=== PATIENT | female | born 1945 | race Caucasian/White ===

== ENCOUNTER 2020-10-23 11:39 | Observation (INO) ==
[2020-10-23 16:11] LABS: Urine Appearance Cloudy; Urine Bilirubin Negative (Negative); Urine Blood Negative (Negative); Urine Color Yellow; Urine Glucose 3+(>=500 mg/dL) (Negative); Urine Ketones Negative (Negative); Urine Nitrite Negative (Negative); Urine Protein Negative (Negative); Urine Urobilinogen Negative (Negative)
[2020-10-23 16:59] LABS: ABS Lymphocytes 1.9 10^3/ul (1.0-4.8); ABS Monocytes 0.9 10^3/ul (0-0.8); ABS Neutrophils 11.6 10^3/ul (1.5-7.7); Eosinophil % 0.2 %; Hematocrit 35 % (35-47); Hemoglobin 11.5 g/dL (12.0-16.0); Lymphocyte % 13.3 %; Mean Corpuscular HGB Conc 33 g/dL (31-36); Mean Corpuscular Hemoglobin 30 pg (27-31); Mean Corpuscular Volume 89 fL (80-97); Mean Platelet Volume 9.3 fL (7.4-10.4); Platelet Count 278 10^3/uL (150-450); Red Blood Count 3.88 10^6 /uL (3.70-4.87); Red Cell Distribution Width 14 % (10-15); White Blood Count 14.5 10^3/uL (3.5-10.8)
[2020-10-23 17:18] LABS: Albumin 3.6 g/dL (3.2-5.2); Albumin/Globulin Ratio 1.2 (1-3); Calcium 8.9 mg/dL (8.6-10.3); EGFR Non-African American 15.7 (>60); Globulin 2.9 g/dL (2-4); Magnesium 1.6 mg/dL (1.9-2.7); Potassium 3.9 mmol/L (3.5-5.0); Total Bilirubin 0.4 mg/dL (0.2-1.0); Total Protein 6.5 g/dL (6.4-8.9)
[2020-10-23 17:19] LABS: Troponin I 0.01 ng/mL (<0.03)
[2020-10-23] MEDS ORDERED: NS 0.9% 1000 ml BAG 1,000 ML IV ONE (17:23)
[2020-10-23 18:32] LABS: Venous Bicarbonate HCO3 22.3 mmol/L (24-28)
[2020-10-23] MEDS: NS 0.9% 1000 ml BAG 2,000 ML IV ONE ×2 (20:30→21:30)
[2020-10-23] MEDS ORDERED: Insulin Infusion 100unit/100mL 100 UNIT/100 ML BAG IV SCH (21:00)
[2020-10-24 00:22] LABS: Calcium 7.6 mg/dL (8.6-10.3); EGFR Non-African American 19.9 (>60); Potassium 3.3 mmol/L (3.5-5.0)
[2020-10-24] MEDS ORDERED: Magnesium Sulfate IV 3 GM in NS 0.9% 100 ml BAG 100 ML IVPB ONE (00:33)
[2020-10-24] MEDS ORDERED: Insulin GLARGINE 100 un/ml 10 ml VIAL SUBCUT ONE (01:17)
[2020-10-24] MEDS ORDERED: Dextrose 50% Syringe 50 ml 25 GM/50 ML SYRINGE IV PUSH PRN (01:19)
[2020-10-24] MEDS ORDERED: Lactated Ringers 1000 ml BAG 1,000 ML IV SCH (02:00)
[2020-10-24] MEDS: KCL 20 MEQ/100 ML IVPREMIX 20 MEQ/100 ML BAG IV SCH ×4 (05:38→09:20)
[2020-10-24] MEDS: Heparin 5000 UNITS/ML 1 mL VIAL SUBCUT SCH ×2 (05:38→15:18)
[2020-10-24 05:46] LABS: ABS Lymphocytes 2.5 10^3/ul (1.0-4.8); ABS Neutrophils 11.4 10^3/ul (1.5-7.7); Eosinophil % 0.2 %; Hematocrit 31 % (35-47); Hemoglobin 10.3 g/dL (12.0-16.0); Mean Corpuscular HGB Conc 34 g/dL (31-36); Mean Corpuscular Hemoglobin 30 pg (27-31); Mean Corpuscular Volume 88 fL (80-97); Mean Platelet Volume 9.3 fL (7.4-10.4); Platelet Count 267 10^3/uL (150-450); Red Blood Count 3.47 10^6 /uL (3.70-4.87); Red Cell Distribution Width 14 % (10-15); White Blood Count 14.9 10^3/uL (3.5-10.8)
[2020-10-24 06:15] LABS: Calcium 7.7 mg/dL (8.6-10.3); Magnesium 2.6 mg/dL (1.9-2.7); Potassium 3.1 mmol/L (3.5-5.0)
[2020-10-24] MEDS ORDERED: Potassium Chloride LIQUID 20 MEQ/15 ML LIQUID PO ONE (06:16)
[2020-10-24 06:21] LABS: C Reactive Protein 11.96 mg/L (<8.01); EGFR African American 28.3 (>60); EGFR Non-African American 23.3 (>60); Phosphorus 3.2 mg/dL (2.5-5.0)
[2020-10-24] MEDS ORDERED: NS 0.9% 1000 ml BAG 1,000 ML IV SCH (06:30)
[2020-10-24] MEDS ORDERED: cefTRIAXone 1 gm/50 mL NS BAG 1 GM/50 ML BAG IVPB SCH (07:30)
[2020-10-24] MEDS ORDERED: CYANOCOBALAMIN 100 MCG PO SCH (09:00)
[2020-10-24] MEDS ORDERED: BRIMONIDINE P 0.15% BOTH EYES SCH (09:00)
[2020-10-24] MEDS ORDERED: Insulin GLARGINE 100 un/ml 10 ml VIAL SUBCUT SCH (09:00)
[2020-10-24] MEDS: Aspirin EC 81 mg TAB.EC (enteric coated) PO SCH (09:20)
[2020-10-24] MEDS: Timolol 0.5% OPTH.SOL BTL BOTH EYES SCH ×2 (09:41→23:28)
[2020-10-24] MEDS: BRIMONIDINE P 0.15% BOTH EYES SCH ×2 (11:46→23:29)
[2020-10-24 12:27] LABS: Calcium 7.8 mg/dL (8.6-10.3); EGFR African American 30.8 (>60); EGFR Non-African American 25.5 (>60); Magnesium 2.3 mg/dL (1.9-2.7); Potassium 4.3 mmol/L (3.5-5.0)
[2020-10-24 13:15] LABS: TSH Ultra Thyroid Stim Horm 0.34 mcIU/mL (0.34-5.60)
[2020-10-24] MEDS ORDERED: Enoxaparin 30 MG/0.3 ML SYR SUBCUT SCH (21:00)
[2020-10-24] MEDS ORDERED: Latanoprost 0.005% 2.5 ml BTL BOTH EYES SCH (21:00)
[2020-10-24] MEDS: Insulin GLARGINE 100 un/ml 10 ml VIAL SUBCUT SCH (23:26)
[2020-10-25 05:50] LABS: ABS Basophils 0.1 10^3/ul (0-0.2); ABS Eosinophils 0.1 10^3/ul (0-0.6); ABS Lymphocytes 2.7 10^3/ul (1.0-4.8); ABS Neutrophils 7.9 10^3/ul (1.5-7.7); Eosinophil % 1.2 %; Hematocrit 29 % (35-47); Hemoglobin 9.9 g/dL (12.0-16.0); Lymphocyte % 22.8 %; Mean Corpuscular HGB Conc 35 g/dL (31-36); Mean Corpuscular Hemoglobin 30 pg (27-31); Mean Corpuscular Volume 87 fL (80-97); Mean Platelet Volume 9.1 fL (7.4-10.4); Platelet Count 254 10^3/uL (150-450); Red Blood Count 3.27 10^6 /uL (3.70-4.87); Red Cell Distribution Width 14 % (10-15); White Blood Count 11.7 10^3/uL (3.5-10.8)
[2020-10-25 06:12] LABS: Calcium 7.5 mg/dL (8.6-10.3); EGFR African American 33.4 (>60); EGFR Non-African American 27.6 (>60); Potassium 3.4 mmol/L (3.5-5.0)
[2020-10-25] MEDS ORDERED: Potassium Chlor 10 meq TAB PO ONE (06:40)
[2020-10-25] MEDS: Aspirin EC 81 mg TAB.EC (enteric coated) PO SCH (08:32)
[2020-10-25] MEDS: Insulin GLARGINE 100 un/ml 10 ml VIAL SUBCUT SCH (08:43)
[2020-10-25] MEDS: Timolol 0.5% OPTH.SOL BTL BOTH EYES SCH (09:00)
[2020-10-25] MEDS: BRIMONIDINE P 0.15% BOTH EYES SCH (09:00)
[2020-10-25 15:44] VITALS: BP 110/60
== END 2020-10-25 17:30 | disposition home or self-care (01) ==
LOC: MEDTELE 11:39 → ED 11:39
PROVIDERS: ADMIT Internal Medicine; ATTEND Internal Medicine

== ENCOUNTER 2022-08-28 03:46 | Inpatient (IN) ==
[2022-08-28 04:13] LABS: INR 1.21 (0.88-1.18)
[2022-08-28 04:15] LABS: ABS Lymphocytes 1.4 10^3/uL (1.0-4.8); ABS Monocytes 0.2 10^3/uL (0.0-0.9); ABS Neutrophils 9.4 10^3/uL (1.5-7.6); ABS Nucleated RBC 0.01 10^3/ul; Eosinophil % 0.1 %; Hematocrit 35.3 % (35-45); Hemoglobin 11.7 g/dL (11.5-14.3); Lymphocyte % 12.5 %; Mean Corpuscular Hemoglobin 30.6 pg (27-33); Mean Corpuscular Hgb Conc 33.3 g/dL (31-36); Mean Corpuscular Volume 91.9 fL (80-97); Mean Platelet Volume 8.8 fL (7.5-11.2); Nucleated Red Blood Cells % 0.1 /100 WBC (0.0-0.4); Platelet Count 225 10^3/uL (150-450); Red Blood Count 3.84 10^6/uL (3.63-4.92); Red Cell Distribution Width 14.5 % (12-17); White Blood Count 11.1 10^3/uL (3.8-11.8)
[2022-08-28 04:22] LABS: Albumin 4.2 g/dL (3.2-5.2); Albumin/Globulin Ratio 1.4 (1-3); Calcium 9.2 mg/dL (8.6-10.3); Creatinine, Serum 1.42 mg/dL (0.51-0.95); Globulin 2.9 g/dL (2-4); Magnesium 1.4 mg/dL (1.9-2.7); Total Bilirubin 0.5 mg/dL (0.2-1.0); Total Protein 7.1 g/dL (6.4-8.9); eGFR CKD-EPI 37.6 (>60)
[2022-08-28] MEDS ORDERED: Furosemide 40 mg/4 ml IV VIAL IV ONE (04:31)
[2022-08-28] MEDS ORDERED: Furosemide 40 mg/4 ml IV VIAL ONE (04:34)
[2022-08-28] MEDS ORDERED: Heparin DRIP 25,000 UNITS BAG 25,000 UNITS/500 ML BAG IV SCH (04:45)
[2022-08-28 04:55] LABS: PCO2 Arterial 47 mmHg (35-45); PO2 Arterial 97 mmHg (80-100)
[2022-08-28] MEDS ORDERED: Heparin 5000 UNITS/ML 1 mL VIAL IV SCH (05:00)
[2022-08-28] MEDS ORDERED: nitroGLYCERIN DRIP 25,000 MCG/250 ML BTL IV SCH ×2 (05:00→16:00)
[2022-08-28 05:23] LABS: High Sensitivity Troponin 1 Hr 1105 pg/mL (<15)
[2022-08-28] MEDS ORDERED: Magnesium Sulf 4 GM/100 ML IV 4,000 MG/100 ML BAG IVPB ONE (05:27)
[2022-08-28] MEDS: Brimonidine P 0.15%(NF) OPH SOL 5 ML BTL BOTH EYES SCH ×2 (07:27→20:50)
[2022-08-28 07:48] LABS: High Sensitivity Troponin 3 Hr 3177 pg/mL (<15)
[2022-08-28 08:31] LABS: HDL Cholesterol 57.6 mg/dL; Phosphorus 4.1 mg/dL (2.5-5.0)
[2022-08-28] MEDS ORDERED: Flumazenil 0.5 mg/5 ml 0.1 MG/ML 5 ml VIAL IV PRN (09:01)
[2022-08-28] MEDS ORDERED: Midazolam 10 mg/10 ml VIAL 1 mg/ml 10 ml VIAL (10 mg) IV SLOW PU ONE (09:01)
[2022-08-28] MEDS ORDERED: fentaNYL 100 mcg/2 ml 50 MCG/ML VIAL IV SLOW PU ONE (09:01)
[2022-08-28] MEDS ORDERED: Naloxone 0.4 mg VIAL 0.4 mg/ml 1 ml VIAL IV PUSH PRN (09:01)
[2022-08-28] MEDS ORDERED: Dextrose 50% Syringe 50 ml 25 GM/50 ML SYRINGE IV PUSH PRN (09:07)
[2022-08-28] MEDS ORDERED: nitroGLYCERIN DRIP 25,000 MCG/250 ML BTL ONE (09:16)
[2022-08-28] MEDS ORDERED: Heparin 1,000 UNIT/ML 10 ml (10,000 UNITS) CATHLAB/DIALYSIS ONE (09:16)
[2022-08-28] MEDS ORDERED: Heparin 2 UNITS/ML 1000 mls 3,000 ML IV ONE (09:16)
[2022-08-28] MEDS ORDERED: niCARdipine 0.1MG/ML IVPREMIX 20 MG/200 ML BAG IV ONE (09:17)
[2022-08-28] MEDS ORDERED: Lidocaine 1% MPF 5 ML VIAL ONE (09:17)
[2022-08-28] MEDS ORDERED: Iohexol 350 (CONTRAST) 200 ML MDV IV ONE (09:17)
[2022-08-28] MEDS ORDERED: fentaNYL 100 mcg/2 ml 50 MCG/ML VIAL ONE (09:56)
[2022-08-28] MEDS ORDERED: Midazolam 5 mg/5 ml VIAL 1 mg/ml 5 ml VIAL (5 mg) ONE (09:56)
[2022-08-28 10:11] LABS: Urine Appearance Clear; Urine Bilirubin Negative (Negative); Urine Blood Negative (Negative); Urine Color Straw; Urine Glucose Negative (Negative); Urine Ketones Negative (Negative); Urine Nitrite Negative (Negative); Urine Protein Negative (Negative); Urine Specific Gravity 1.006 (1.002-1.030); Urine Urobilinogen Negative (Negative)
[2022-08-28] MEDS ORDERED: Atropine 0.1 MG/ML 10 ml SYR (1 mg) ONE (10:15)
[2022-08-28 10:48] LABS: TSH Ultra Thyroid Stim Horm 0.24 mcIU/mL (0.34-5.60)
[2022-08-28] MEDS: Ondansetron 4 mg VIAL 2 MG/ML 2 ml VIAL IV PRN (13:53)
[2022-08-28] MEDS ORDERED: Pantoprazole VIAL 40 MG VIAL IV ONE (13:56)
[2022-08-28] MEDS ORDERED: Pantoprazole VIAL 40 MG VIAL ONE (13:58)
[2022-08-28] MEDS ORDERED: Metoprolol Tartrate 5 mg VIAL 5 ml VIAL (1 mg/ml) IV PRN (15:25)
[2022-08-28] MEDS: Latanoprost 0.005% 2.5 ml BTL BOTH EYES SCH (21:01)
[2022-08-28] MEDS: Timolol 0.5% OPTH.SOL BTL BOTH EYES SCH (21:11)
[2022-08-29 05:22] LABS: ABS Basophils 0.1 10^3/uL (0.0-0.1); ABS Lymphocytes 1.4 10^3/uL (1.0-4.8); ABS Monocytes 1.4 10^3/uL (0.0-0.9); Eosinophil % 0.1 %; Hematocrit 31.1 % (35-45); Hemoglobin 10.7 g/dL (11.5-14.3); Mean Corpuscular Hemoglobin 30.8 pg (27-33); Mean Corpuscular Hgb Conc 34.4 g/dL (31-36); Mean Corpuscular Volume 89.7 fL (80-97); Mean Platelet Volume 8.4 fL (7.5-11.2); Platelet Count 221 10^3/uL (150-450); Red Blood Count 3.47 10^6/uL (3.63-4.92); Red Cell Distribution Width 14.5 % (12-17); White Blood Count 16.9 10^3/uL (3.8-11.8)
[2022-08-29 05:40] LABS: Albumin 3.7 g/dL (3.2-5.2); Albumin/Globulin Ratio 1.5 (1-3); Calcium 8.8 mg/dL (8.6-10.3); Creatinine, Serum 1.46 mg/dL (0.51-0.95); Globulin 2.4 g/dL (2-4); Potassium 3.6 mmol/L (3.5-5.0); Total Bilirubin 0.7 mg/dL (0.2-1.0); Total Protein 6.1 g/dL (6.4-8.9); eGFR CKD-EPI 36.4 (>60)
[2022-08-29] MEDS ORDERED: Potassium Chlor 20 meq TAB.ER PO ONE (07:54)
[2022-08-29 08:20] LABS: Magnesium 1.9 mg/dL (1.9-2.7)
[2022-08-29] MEDS: Brimonidine P 0.15%(NF) OPH SOL 5 ML BTL BOTH EYES SCH ×2 (08:49→19:42)
[2022-08-29] MEDS ORDERED: Magnesium Sulfate 2 gm BAG 2 GM/50 ML BAG IVPB ONE (08:51)
[2022-08-29] MEDS: Timolol 0.5% OPTH.SOL BTL BOTH EYES SCH ×2 (08:51→19:42)
[2022-08-29] MEDS ORDERED: Amiodarone 150 mg IVPREMIX 150 MG/100 ML BAG IV ONE (10:38)
[2022-08-29] MEDS: Amiodarone 360 MG IVPREMIX 360 MG/200 ML BAG IV SCH ×3 (11:29→18:15)
[2022-08-29 14:20] LABS: Free T4 1.11 ng/dL (0.61-1.12)
[2022-08-29] MEDS ORDERED: Amiodarone 360 MG IVPREMIX 360 MG/200 ML BAG IV SCH (17:25)
[2022-08-29] MEDS: Latanoprost 0.005% 2.5 ml BTL BOTH EYES SCH (19:43)
[2022-08-29] MEDS: Insulin GLARGINE 100 un/ml 10 ml VIAL SUBCUT SCH (20:23)
[2022-08-30] MEDS: Ondansetron 4 mg VIAL 2 MG/ML 2 ml VIAL IV PRN (01:47)
[2022-08-30] MEDS: Amiodarone 360 MG IVPREMIX 360 MG/200 ML BAG IV SCH (03:40)
[2022-08-30 04:28] LABS: ABS Lymphocytes 0.9 10^3/uL (1.0-4.8); ABS Monocytes 0.9 10^3/uL (0.0-0.9); ABS Neutrophils 12.2 10^3/uL (1.5-7.6); Eosinophil % 0.1 %; Hematocrit 28.7 % (35-45); Hemoglobin 9.9 g/dL (11.5-14.3); Lymphocyte % 6.2 %; Mean Corpuscular Hemoglobin 30.9 pg (27-33); Mean Corpuscular Hgb Conc 34.4 g/dL (31-36); Mean Corpuscular Volume 89.8 fL (80-97); Mean Platelet Volume 8.8 fL (7.5-11.2); Platelet Count 182 10^3/uL (150-450); Red Cell Distribution Width 14.7 % (12-17)
[2022-08-30 04:45] LABS: Calcium 8.3 mg/dL (8.6-10.3); Creatinine, Serum 2.14 mg/dL (0.51-0.95); Magnesium 2.5 mg/dL (1.9-2.7); Phosphorus 3.6 mg/dL (2.5-5.0); Potassium 4.1 mmol/L (3.5-5.0)
[2022-08-30] MEDS: Timolol 0.5% OPTH.SOL BTL BOTH EYES SCH ×2 (08:21→20:04)
[2022-08-30] MEDS: Brimonidine P 0.15%(NF) OPH SOL 5 ML BTL BOTH EYES SCH ×2 (08:21→20:03)
[2022-08-30] MEDS: Insulin GLARGINE 100 un/ml 10 ml VIAL SUBCUT SCH ×2 (09:08→20:10)
[2022-08-30] MEDS ORDERED: Lactated Ringers 1000 ml BAG 250 ML IV ONE (09:48)
[2022-08-30] MEDS: Latanoprost 0.005% 2.5 ml BTL BOTH EYES SCH (20:03)
[2022-08-31 04:17] LABS: ABS Basophils 0.1 10^3/uL (0.0-0.1); ABS Eosinophils 0.1 10^3/uL (0.0-0.5); ABS Lymphocytes 1.6 10^3/uL (1.0-4.8); ABS Monocytes 1.4 10^3/uL (0.0-0.9); ABS Neutrophils 9.2 10^3/uL (1.5-7.6); ABS Nucleated RBC 0.02 10^3/ul; Eosinophil % 0.7 %; Hematocrit 25.7 % (35-45); Hemoglobin 8.9 g/dL (11.5-14.3); Lymphocyte % 12.7 %; Mean Corpuscular Hemoglobin 31.2 pg (27-33); Mean Corpuscular Hgb Conc 34.8 g/dL (31-36); Mean Corpuscular Volume 89.7 fL (80-97); Mean Platelet Volume 8.7 fL (7.5-11.2); Nucleated Red Blood Cells % 0.1 /100 WBC (0.0-0.4); Platelet Count 171 10^3/uL (150-450); Red Blood Count 2.86 10^6/uL (3.63-4.92); White Blood Count 12.3 10^3/uL (3.8-11.8)
[2022-08-31 04:32] LABS: Calcium 7.8 mg/dL (8.6-10.3); Creatinine, Serum 3.17 mg/dL (0.51-0.95); Magnesium 2.3 mg/dL (1.9-2.7); Phosphorus 5.1 mg/dL (2.5-5.0); Potassium 3.9 mmol/L (3.5-5.0); eGFR CKD-EPI 14.4 (>60)
[2022-08-31] MEDS: Timolol 0.5% OPTH.SOL BTL BOTH EYES SCH ×2 (08:25→20:33)
[2022-08-31] MEDS: Brimonidine P 0.15%(NF) OPH SOL 5 ML BTL BOTH EYES SCH ×2 (08:25→20:32)
[2022-08-31] MEDS: Insulin GLARGINE 100 un/ml 10 ml VIAL SUBCUT SCH ×2 (08:29→20:31)
[2022-08-31] MEDS ORDERED: NS 0.9% 250 ml 250 ML IV ONE (08:36)
[2022-08-31] MEDS ORDERED: Lactated Ringers 1000 ml BAG 1,000 ML IV ONE (10:37)
[2022-08-31 11:06] LABS: % Iron Saturation 11 % (15-55); .Transferrin 191 mg/dL (203-362); Iron 30 ug/dL (50-212); Total Iron Binding Capacity 267 mcg/dL (250-450); Unsaturated Iron Binding 237 ug/dL
[2022-08-31] MEDS: Amiodarone 400 mg TAB PO SCH ×3 (11:22→20:31)
[2022-08-31 11:25] LABS: Ferritin 180.3 ng/mL (11-307)
[2022-08-31 11:29] LABS: Folate > 20.00 ng/mL (5.90-24.80)
[2022-08-31 16:11] LABS: Hematocrit 27.1 % (35-45); Hemoglobin 9.3 g/dL (11.5-14.3)
[2022-08-31 16:26] LABS: Calcium 7.5 mg/dL (8.6-10.3); Creatinine, Serum 3.36 mg/dL (0.51-0.95); Potassium 4.4 mmol/L (3.5-5.0); eGFR CKD-EPI 13.4 (>60)
[2022-08-31] MEDS ORDERED: Enoxaparin 80 MG/0.8 ML SYR SUBCUT SCH (20:00)
[2022-08-31] MEDS: Latanoprost 0.005% 2.5 ml BTL BOTH EYES SCH (20:33)
[2022-09-01 04:55] LABS: ABS Lymphocytes 1.2 10^3/uL (1.0-4.8); ABS Monocytes 1.5 10^3/uL (0.0-0.9); ABS Neutrophils 8.6 10^3/uL (1.5-7.6); ABS Nucleated RBC 0.01 10^3/ul; Eosinophil % 0.3 %; Hematocrit 25.7 % (35-45); Hemoglobin 8.9 g/dL (11.5-14.3); Lymphocyte % 10.6 %; Mean Corpuscular Hemoglobin 31.3 pg (27-33); Mean Corpuscular Hgb Conc 34.4 g/dL (31-36); Mean Corpuscular Volume 90.9 fL (80-97); Nucleated Red Blood Cells % 0.1 /100 WBC (0.0-0.4); Platelet Count 180 10^3/uL (150-450); Red Blood Count 2.83 10^6/uL (3.63-4.92); Red Cell Distribution Width 14.6 % (12-17); White Blood Count 11.4 10^3/uL (3.8-11.8)
[2022-09-01 05:13] LABS: Calcium 7.6 mg/dL (8.6-10.3); Creatinine, Serum 3.29 mg/dL (0.51-0.95); Magnesium 2.3 mg/dL (1.9-2.7); Potassium 4.1 mmol/L (3.5-5.0); eGFR CKD-EPI 13.7 (>60)
[2022-09-01] MEDS: Lactated Ringers 1000 ml BAG 1,000 ML IV SCH ×2 (08:21→19:29)
[2022-09-01] MEDS: Timolol 0.5% OPTH.SOL BTL BOTH EYES SCH ×2 (08:33→20:56)
[2022-09-01] MEDS: Insulin GLARGINE 100 un/ml 10 ml VIAL SUBCUT SCH ×2 (08:33→21:08)
[2022-09-01] MEDS: Brimonidine P 0.15%(NF) OPH SOL 5 ML BTL BOTH EYES SCH ×2 (08:33→20:56)
[2022-09-01] MEDS: Amiodarone 400 mg TAB PO SCH ×2 (08:34→20:53)
[2022-09-01] MEDS ORDERED: CALCIUM GLUCONATE 1GM/50ML NS 1 GM/50 ML BAG IV ONE (09:24)
[2022-09-01] MEDS ORDERED: Heparin DRIP 25,000 UNITS BAG 25,000 UNITS/500 ML BAG IV SCH (11:15)
[2022-09-01] MEDS ORDERED: Heparin 5000 UNITS/ML 1 mL VIAL IV SCH (12:00)
[2022-09-01] MEDS ORDERED: Magnesium Hydroxide LIQ 30 ML UDC PO PRN (12:48)
[2022-09-01] MEDS ORDERED: Senna TAB 8.6 mg TAB PO PRN (12:48)
[2022-09-01] MEDS: Heparin DRIP 25,000 UNITS BAG 25,000 UNITS/500 ML BAG IV SCH (21:07)
[2022-09-01] MEDS: Latanoprost 0.005% 2.5 ml BTL BOTH EYES SCH (21:10)
[2022-09-02 04:21] LABS: ABS Eosinophils 0.1 10^3/uL (0.0-0.5); ABS Lymphocytes 1.2 10^3/uL (1.0-4.8); ABS Monocytes 1.2 10^3/uL (0.0-0.9); ABS Neutrophils 6.9 10^3/uL (1.5-7.6); ABS Nucleated RBC 0.01 10^3/ul; Eosinophil % 0.7 %; Hematocrit 24.5 % (35-45); Hemoglobin 8.6 g/dL (11.5-14.3); Mean Corpuscular Hemoglobin 31.5 pg (27-33); Mean Corpuscular Hgb Conc 35.2 g/dL (31-36); Mean Corpuscular Volume 89.6 fL (80-97); Mean Platelet Volume 8.9 fL (7.5-11.2); Nucleated Red Blood Cells % 0.1 /100 WBC (0.0-0.4); Platelet Count 187 10^3/uL (150-450); Red Blood Count 2.73 10^6/uL (3.63-4.92); Red Cell Distribution Width 14.6 % (12-17); White Blood Count 9.5 10^3/uL (3.8-11.8)
[2022-09-02 04:36] LABS: Albumin 2.9 g/dL (3.2-5.2); Albumin/Globulin Ratio 1.2 (1-3); Calcium 7.7 mg/dL (8.6-10.3); Creatinine, Serum 2.09 mg/dL (0.51-0.95); Globulin 2.5 g/dL (2-4); Magnesium 2.2 mg/dL (1.9-2.7); Total Bilirubin 0.7 mg/dL (0.2-1.0); Total Protein 5.4 g/dL (6.4-8.9); eGFR CKD-EPI 23.7 (>60)
[2022-09-02 04:45] LABS: Potassium 4.7 mmol/L (3.5-5.0)
[2022-09-02] MEDS: Amiodarone 400 mg TAB PO SCH ×2 (07:41→20:44)
[2022-09-02] MEDS: Insulin GLARGINE 100 un/ml 10 ml VIAL SUBCUT SCH ×2 (07:42→22:41)
[2022-09-02] MEDS: Timolol 0.5% OPTH.SOL BTL BOTH EYES SCH ×2 (07:42→20:46)
[2022-09-02] MEDS: Brimonidine P 0.15%(NF) OPH SOL 5 ML BTL BOTH EYES SCH ×2 (07:43→20:43)
[2022-09-02] MEDS ORDERED: Lactated Ringers 1000 ml BAG 500 ML IV ONE (09:20)
[2022-09-02 14:37] LABS: ABS Eosinophils 0.1 10^3/uL (0.0-0.5); ABS Lymphocytes 1.1 10^3/uL (1.0-4.8); ABS Monocytes 1.3 10^3/uL (0.0-0.9); ABS Neutrophils 8.9 10^3/uL (1.5-7.6); ABS Nucleated RBC 0.01 10^3/ul; Eosinophil % 0.6 %; Hematocrit 27.5 % (35-45); Hemoglobin 9.4 g/dL (11.5-14.3); Lymphocyte % 9.5 %; Mean Corpuscular Hemoglobin 30.4 pg (27-33); Mean Corpuscular Volume 89.6 fL (80-97); Mean Platelet Volume 8.8 fL (7.5-11.2); Platelet Count 213 10^3/uL (150-450); Red Blood Count 3.07 10^6/uL (3.63-4.92); Red Cell Distribution Width 14.5 % (12-17); White Blood Count 11.3 10^3/uL (3.8-11.8)
[2022-09-02] MEDS: Heparin DRIP 25,000 UNITS BAG 25,000 UNITS/500 ML BAG IV SCH (19:19)
[2022-09-02] MEDS: Latanoprost 0.005% 2.5 ml BTL BOTH EYES SCH (20:46)
[2022-09-02] MEDS ORDERED: Brimonidine P 0.15%(NF) OPH SOL 5 ML BTL BOTH EYES SCH (21:00)
[2022-09-03 04:33] LABS: Urine Appearance Clear; Urine Bilirubin Negative (Negative); Urine Blood Negative (Negative); Urine Color Yellow; Urine Glucose Negative (Negative); Urine Ketones Negative (Negative); Urine Nitrite Negative (Negative); Urine Protein Negative (Negative); Urine Specific Gravity 1.013 (1.002-1.030); Urine Urobilinogen Negative (Negative)
[2022-09-03 07:37] VITALS: BP 141/45
[2022-09-03 08:14] LABS: ABS Eosinophils 0.2 10^3/uL (0.0-0.5); ABS Lymphocytes 1.6 10^3/uL (1.0-4.8); ABS Monocytes 1.3 10^3/uL (0.0-0.9); ABS Neutrophils 7.5 10^3/uL (1.5-7.6); ABS Nucleated RBC 0.01 10^3/ul; Eosinophil % 1.6 %; Hematocrit 26.1 % (35-45); Hemoglobin 9.1 g/dL (11.5-14.3); Mean Corpuscular Hemoglobin 31.3 pg (27-33); Mean Corpuscular Hgb Conc 34.9 g/dL (31-36); Mean Corpuscular Volume 89.6 fL (80-97); Mean Platelet Volume 8.8 fL (7.5-11.2); Platelet Count 226 10^3/uL (150-450); Red Blood Count 2.92 10^6/uL (3.63-4.92); Red Cell Distribution Width 14.4 % (12-17); White Blood Count 10.6 10^3/uL (3.8-11.8)
[2022-09-03 08:31] LABS: Creatinine, Serum 1.5 mg/dL (0.51-0.95); Potassium 4.1 mmol/L (3.5-5.0); eGFR CKD-EPI 35.2 (>60)
[2022-09-03] MEDS: Insulin GLARGINE 100 un/ml 10 ml VIAL SUBCUT SCH (09:26)
[2022-09-03] MEDS: Amiodarone 400 mg TAB PO SCH (09:27)
[2022-09-03] MEDS: Brimonidine P 0.15%(NF) OPH SOL 5 ML BTL BOTH EYES SCH (09:27)
[2022-09-03] MEDS: Timolol 0.5% OPTH.SOL BTL BOTH EYES SCH (09:27)
== END 2022-09-03 16:40 | disposition home or self-care (01) | DRG 246 ==
LOC: ED 03:46 → SUATTDRO 05:31 → EDHOLD 05:31 → ICU 06:11 → MEDTELE 09:45 → ICU 11:42 → MEDTELE 09-01 12:09
PROVIDERS: ADMIT Surgery Surgical Critical Care; ATTEND Internal Medicine

== ENCOUNTER 2022-09-08 05:34 | Observation (INO) ==
[2022-09-08] MEDS ORDERED: nitroGLYCERIN DRIP 25,000 MCG/250 ML BTL ONE (05:47)
[2022-09-08] MEDS ORDERED: Furosemide 40 mg/4 ml IV VIAL IV ONE (05:54)
[2022-09-08] MEDS ORDERED: nitroGLYCERIN DRIP 25,000 MCG/250 ML BTL IV SCH (06:00)
[2022-09-08 06:20] LABS: ABS Basophils 0.1 10^3/uL (0.0-0.1); ABS Eosinophils 0.2 10^3/uL (0.0-0.5); ABS Lymphocytes 3.4 10^3/uL (1.0-4.8); ABS Monocytes 1.3 10^3/uL (0.0-0.9); ABS Neutrophils 16.6 10^3/uL (1.5-7.6); Eosinophil % 0.9 %; Hematocrit 28.6 % (35-45); Hemoglobin 9.5 g/dL (11.5-14.3); Lymphocyte % 15.8 %; Mean Corpuscular Hemoglobin 30.3 pg (27-33); Mean Corpuscular Hgb Conc 33.2 g/dL (31-36); Mean Corpuscular Volume 91.4 fL (80-97); Mean Platelet Volume 8.1 fL (7.5-11.2); Platelet Count 464 10^3/uL (150-450); Red Blood Count 3.13 10^6/uL (3.63-4.92); Red Cell Distribution Width 14.9 % (12-17); White Blood Count 21.6 10^3/uL (3.8-11.8)
[2022-09-08 06:33] LABS: Albumin 3.7 g/dL (3.2-5.2); Albumin/Globulin Ratio 1.3 (1-3); Calcium 8.2 mg/dL (8.6-10.3); Creatinine, Serum 1.46 mg/dL (0.51-0.95); Globulin 2.9 g/dL (2-4); Potassium 3.9 mmol/L (3.5-5.0); Total Bilirubin 0.8 mg/dL (0.2-1.0); Total Protein 6.6 g/dL (6.4-8.9); eGFR CKD-EPI 36.4 (>60)
[2022-09-08 07:55] LABS: High Sensitivity Troponin 1 Hr 335 pg/mL (<15)
[2022-09-08 08:18] LABS: Magnesium 1.7 mg/dL (1.9-2.7)
[2022-09-08 10:12] LABS: Urine Appearance Clear; Urine Bilirubin Negative (Negative); Urine Blood Negative (Negative); Urine Color Colorless; Urine Glucose Negative (Negative); Urine Ketones Negative (Negative); Urine Nitrite Negative (Negative); Urine Protein Negative (Negative); Urine Specific Gravity 1.004 (1.002-1.030); Urine Urobilinogen Negative (Negative)
[2022-09-08] MEDS ORDERED: Dextrose 50% Syringe 50 ml 25 GM/50 ML SYRINGE IV PUSH PRN (11:04)
[2022-09-08] MEDS ORDERED: Magnesium Sulfate IV 3 GM in NS 0.9% 100 ml BAG 100 ML IVPB ONE (12:35)
[2022-09-08] MEDS: Brimonidine P 0.15%(NF) OPH SOL 5 ML BTL BOTH EYES SCH (20:35)
[2022-09-08] MEDS: Timolol 0.5% OPTH.SOL BTL BOTH EYES SCH (20:36)
[2022-09-08] MEDS ORDERED: Insulin GLARGINE 100 un/ml 10 ml VIAL SUBCUT SCH (21:00)
[2022-09-08] MEDS ORDERED: Latanoprost 0.005% 2.5 ml BTL BOTH EYES SCH (21:00)
[2022-09-09 07:00] LABS: ABS Basophils 0.1 10^3/uL (0.0-0.1); ABS Eosinophils 0.1 10^3/uL (0.0-0.5); ABS Lymphocytes 1.7 10^3/uL (1.0-4.8); ABS Neutrophils 11.2 10^3/uL (1.5-7.6); Eosinophil % 0.8 %; Hematocrit 27.2 % (35-45); Hemoglobin 9.1 g/dL (11.5-14.3); Lymphocyte % 11.9 %; Mean Corpuscular Hemoglobin 30.4 pg (27-33); Mean Corpuscular Hgb Conc 33.5 g/dL (31-36); Mean Corpuscular Volume 90.8 fL (80-97); Platelet Count 376 10^3/uL (150-450); Red Blood Count 2.99 10^6/uL (3.63-4.92); Red Cell Distribution Width 14.5 % (12-17)
[2022-09-09 07:21] LABS: Calcium 8.4 mg/dL (8.6-10.3); Creatinine, Serum 1.36 mg/dL (0.51-0.95); Potassium 3.9 mmol/L (3.5-5.0); eGFR CKD-EPI 39.6 (>60)
[2022-09-09] MEDS: Brimonidine P 0.15%(NF) OPH SOL 5 ML BTL BOTH EYES SCH (07:32)
[2022-09-09] MEDS: Timolol 0.5% OPTH.SOL BTL BOTH EYES SCH (07:34)
[2022-09-09 08:28] LABS: C Reactive Protein 19.51 mg/L (<8.01)
[2022-09-09 10:41] LABS: Ferritin 210.5 ng/mL (11-307)
[2022-09-09 15:19] VITALS: BP 125/52
== END 2022-09-09 17:43 | disposition home or self-care (01) ==
LOC: ED 05:34 → INTOOBSV 09:54 → EDHOLD 09:54 → SUATTDRO 09:54 → MEDTELE 12:50
PROVIDERS: ADMIT Hospitalist; ATTEND Internal Medicine